=== PATIENT | male | born 1970 | race Caucasian/White ===

== ENCOUNTER 2019-07-03 00:43 | Day surgery (SDC) | payer OTHER, SELFPAY ==
[2019-06-29 14:41] VITALS: BMI 23.6
--- NOTE | 2019-07-03 08:38 | P.PNAN_ITS ---
Anes - Initial Pre Proc Eval Procedure: Operation Date: 07/03/19 10:30 Proposed Procedures p Screening Colonoscopy - Richar Albrecht MD <Jon Carter MD - Last Filed: 07/03/19 08:38> Date/Time: 07/03/19 08:38 <Jon Carter MD - Last Filed: 07/03/19 08:38> Surgeon: Richar Albrecht MD <Jon Carter MD - Last Filed: 07/03/19 08:38> Pre Op Diagnosis: Neoplasm screening, family hx colon ca <Jon Carter MD - Last Filed: 07/03/19 08:38> Patient Data Age: 48 Gender: M Height: 6 ft Weight: 79 kg <Jon Carter MD - Last Filed: 07/03/19 08:38> Allergies Allergy/AdvReac Type Severity Reaction Status Date / Time No Known Allergies Allergy Verified 06/29/19 14:40 <Jon Carter MD - Last Filed: 07/03/19 08:38> Home Medications Medication Instructions Recorded Confirmed Type albuterol sulfate 90 mcg INHALATION PRN 06/29/19 06/29/19 History <Jon Carter MD - Last Filed: 07/03/19 08:38> Patient hx anesthesia problems: none <Elan Stanley MD - Last Filed: 07/03/19 10:43> Family hx anesthesia problems: none <Elan Stanley MD - Last Filed: 07/03/19 10:43> FORMERLY [facility], [facility] Past Medical History Medical History: Medical History (Updated 07/03/19 @ 08:38 by Jon Carter MD) Anxiety Asthma <Jon Carter MD - Last Filed: 07/03/19 08:38> Social History Social History: Social History Gender identity (if verbalized by the patient): Male <Jon Carter MD - Last Filed: 07/03/19 08:38> Anes - Eval Final PreProcedure Day of Procedure 07/03/19 08:38 <Jon Carter MD - Last Filed: 07/03/19 08:38> Patient weight: normal <Elan Stanley MD - Last Filed: 07/03/19 10:43> Heart: regular rate and rhythm <Elan Stanley MD - Last Filed: 07/03/19 10:43> Lungs: clear to auscultation and normal air movement <Elan Stanley MD - Last Filed: 07/03/19 10:43> Airway: Mallampati scale class II <Elan Stanley MD - Last Filed: 07/03/19 10:43> Neurological: alert and oriented <Elan Stanley MD - Last Filed: 07/03/19 10:43> Last oral intake: >/= 8 hours <Elan Stanley MD - Last Filed: 07/03/19 10:43> ASA classification: II <Elan Stanley MD - Last Filed: 07/03/19 10:43> Emergent: no <Elan Stanley MD - Last Filed: 07/03/19 10:43> Anesthetic plan: proceed <Elan Stanley MD - Last Filed: 07/03/19 10:43> Anesthesia type and monitoring: general GIVS <Elan Stanley MD - Last Filed: 07/03/19 10:43> Informed Consent: The patient's anesthetic plan and its attendant risks and benefits were discussed with the patient/family/POA. Questions were solicited and answers provided to the satisfaction of the patient/family/POA. <Jon Carter MD - Last Filed: 07/03/19 08:38>
[2019-07-03] MEDS: LACTATED RINGERS 1,000 ML 150 ML IV CONT (10:36)
[2019-07-03 10:52] VITALS: BP 133/83; PULSE 65; RESP 20; TEMP 36.4; O2SAT 99; BMI 26.6
--- NOTE | 2019-07-03 11:06 | P.CONGI_ITS ---
Assessment and Plan Additional Plan This is a 48-year-old white male patient seen in evaluation at the request of Dr. Srinivasan Lemon. Patient states his current weight appetite bowel movements are normal. There is a report that his father may have had colon cancer. The family states it may been bladder cancer. Patient states that his own weight appetite bowel movements normal. denies any blood in his stools. He denies abdominal pain. Current medications include albuterol. Patient has no stated drug allergies. Past medical history significant for asthma. Physical exam reveals patient to be alert. Vital signs stable. HEENT exam unremarkable. Lungs are clear to auscultation and percussion. Heart is without murmur or extra sounds. Abdominal exam bowel sounds present soft nontender with no hepatosplenomegaly. Digital external rectal exam is normal. Impression 1. Neoplasia screening. This is advised because of his age. Also because of a questionable history of colon cancer in his father. Plan is for screening colonoscopy. GI Consult Note Consult date/time: 07/03/19 11:06 HPI: Mikey Singh is a 48 year old male [facility] Past Medical History Medical History (Updated 07/03/19 @ 08:38 by Jon Carter MD) Anxiety Asthma Social History Social History Gender identity (if verbalized by the patient): Male Meds Home Medications and Allergies Home Medications Medication Instructions Recorded Confirmed Type albuterol sulfate 90 mcg INHALATION PRN 06/29/19 07/03/19 History Allergies Allergy/AdvReac Type Severity Reaction Status Date / Time No Known Allergies Allergy Verified 07/03/19 10:51 Vital Signs Vital Signs - 24 hr 07/03/19 10:52 Temperature 36.4 C L Pulse Rate 65 Respiratory Rate 20 Blood Pressure 133/83 Pulse Oximetry 99
[2019-07-03 12:15] VITALS: BP 113/80; PULSE 68; RESP 16; O2SAT 95
[2019-07-03 12:25] VITALS: BP 124/81; PULSE 80; RESP 20; O2SAT 99
[2019-07-03 12:35] VITALS: BP 140/97; PULSE 78; RESP 17; O2SAT 98
== END 2019-07-03 12:48 | disposition home or self-care (01) ==
PROVIDERS: PCP Internal Medicine; Visit Provider Internal Medicine Gastroenterology
PROC: 0DJD8ZZ Inspection of Lower Intestinal Tract, Via Natural or Artificial Opening Endoscopic (ICD-10-PCS; CPT 45378; principal; 2019-07-03 10:30)
DX: Z12.11 Encounter for screening for malignant neoplasm of colon (principal); K63.5 Polyp of colon; K64.8 Other hemorrhoids; J45.909 Unspecified asthma, uncomplicated; F41.9 Anxiety disorder, unspecified
CPT/HCPCS: 45385; 88305; J2704; J7120

== ENCOUNTER 2021-09-27 09:48 | Outpatient (CLI) | payer OTHER, SELFPAY ==
--- NOTE | 2021-09-27 11:00 | NEURO_ITS ---
Impression: # Complains of numbness of hands. # Bilateral mild Carpal Tunnel Syndrome. # No ulnar neuropathy. # Needle/EMG exam not requested. Nerve Conduction Studies Anti Sensory Summary Table Stim Site NR Peak (ms) P-T Amp (?V) Site1 Site2 Delta-P (ms) Dist (cm) Rayshawn (m/s) Left Median Anti Sensory (2-3nd Digit) Wrist 3.4 24.1 Wrist 2-3nd Digit 3.4 14.0 41 Wrist 3.7 9.2 Wrist 2-3nd Digit 3.4 14.0 41 Right Median Anti Sensory (2-3nd Digit) Wrist 3.7 17.6 Wrist 2-3nd Digit 3.7 14.0 38 Wrist 3.9 20.0 Wrist 2-3nd Digit 3.7 14.0 38 Left Radial Anti Sensory (Base 1st Digit) Wrist 1.8 19.1 Wrist Base 1st Digit 1.8 0.0 Right Radial Anti Sensory (Base 1st Digit) Wrist 2.3 0.1 Wrist Base 1st Digit 2.3 0.0 Left Ulnar Anti Sensory (5th Digit) Wrist 1.9 21.3 Wrist 5th Digit 1.9 14.0 74 Right Ulnar Anti Sensory (5th Digit) Wrist 2.5 32.1 Wrist 5th Digit 2.5 14.0 56 Motor Summary Table Stim Site NR Onset (ms) O-P Amp (mV) Site1 Site2 Delta-0 (ms) Dist (cm) Rayshawn (m/s) Left Median Motor (Abd Poll Brev) Wrist 4.0 2.1 Elbow Wrist 5.5 31.0 56 Elbow 9.5 1.9 Right Median Motor (Abd Poll Brev) Wrist 4.5 2.2 Elbow Wrist 5.7 32.0 56 Elbow 10.2 4.2 Left Ulnar Motor (Abd Dig Minimi) Wrist 2.2 5.9 A Elbow Wrist 5.9 34.0 58 A Elbow 8.1 4.6 Right Ulnar Motor (Abd Dig Minimi) Wrist 3.0 5.0 A Elbow Wrist 5.7 33.0 58 A Elbow 8.7 3.7 F Wave Studies NR F-Lat (ms) L-R F-Lat (ms) Left Median (Mrkrs) (Abd Poll Brev) 31.48 0.65 Right Median (Mrkrs) (Abd Poll Brev) 32.14 0.65 Left Ulnar (Mrkrs) (Abd Dig Min) 29.53 0.35 Right Ulnar (Mrkrs) (Abd Dig Min) 29.88 0.35 MTDD
== END 2021-09-27 09:49 | disposition home or self-care (01) ==
PROVIDERS: PCP Internal Medicine; Visit Provider Internal Medicine
DX: R20.2 Paresthesia of skin (principal); G56.03 Carpal tunnel syndrome, bilateral upper limbs
CPT/HCPCS: 95911

== ENCOUNTER 2024-09-04 09:15 | Outpatient (CLI) | payer OTHER, SELFPAY ==
--- NOTE | ~2024-09-04 | US_ITS ---
EXAMINATION: US soft tissue UE LT DATE: 09/04/2024 09:32 INDICATION: Mass at the proximal left third digit TECHNIQUE: Multiple grayscale and Doppler ultrasound images of the region of concern at the ulnar horace e of the occiput left third digit were obtained. COMPARISON: None FINDINGS: The lesion of concern corresponds to a 5 x 5 x 4 mm anechoic simple appearing cystic lesion with no i nternal vascular flow on color Doppler. The lesion is located along the ulnar side of the diaphysis o f the third proximal phalanx. IMPRESSION: 5 mm simple appearing cystic lesion in the soft tissues along the ulnar side of the third proximal ph alanx most likely representing either a ganglion or epidermoid cyst. Reviewed, dictated and finalized at location B. IMPRESSION: 5 mm simple appearing cystic lesion in the soft tissues along the ulnar side of the third proximal phalanx most likely representing either a ganglion or epide rmoid cyst.
== END 2024-09-04 09:16 | disposition home or self-care (01) ==
LOC: MICIMG 09:16
PROVIDERS: PCP Family Medicine; Visit Provider Plastic Surgery
DX: M71.342 Other bursal cyst, left hand (principal)
CPT/HCPCS: 76882

== ENCOUNTER 2024-09-09 00:29 | Day surgery (SDC) | payer OTHER, SELFPAY ==
[2024-09-03 09:06] VITALS: BMI 27.1
--- OUTSIDE RECORDS SUMMARY | 2024-09-09 00:31 | XMS_ITS | Clinical Summary ---
Author Organization [place] [address] [address] Address [address] [place] [phone] Care Team Providers Care Roller Skates Assembler Name Role Phone Joanne Goodwin MD, Carlos Toth Primary Care Provide r Allergies No known active allergies Medications No known medications Active Problems Problem Noted Date Diagnosed Date Preventative health care 07/02/2024 Assessment & Plan (07/02/2024 9:48 AM MODELING AND SIMULATION ANALYST): Reviewed labs, screenings and vaccines Degeneration of intervertebral disc of cervical region 12/29/2015 Resolved Problems Problem Noted Date Diagnosed Date Resolved Date Cervicalgia 12/19/2015 07/02/2024 Encounters Date Type Department Care Team Description 08/10/2024 Letter (Out) [facility] [address] [place] [phone] 08/10/2024 Letter (Out) [facility] [address] [place] [phone] 08/10/2024 Patient Message [facility] [address] [place] [phone] Carlos Rubio Jr., MD Can you please fax a referral to Dr. Asuncion Oakley with [facility], for the knot on left hand / fax #[phone] Thank you. 07/13/2024 Telephone [facility] [address] [place] [phone] Carlos Rubio Jr., MD 07/02/2024 10:25 AM MODELING AND SIMULATION ANALYST Lab [facility] 1 Lab [address] [place] [address] Preventative health care 07/02/2024 10:00 AM MODELING AND SIMULATION ANALYST - 07/02/2024 11:59 PM MODELING AND SIMULATION ANALYST Hospital Encounter [facility] M[facility] 1 DIAG IMG [address] [place] [address] Pain of left middle finger Discharge Disposition: Discharge to home or self care 07/02/2024 9:15 AM MODELING AND SIMULATION ANALYST Office Visit [facility] [address] [facility] [address] [place] [phone] Carlos Rubio Jr., MD Preventative health care (Primary Dx); Pain of left middle finger from Last 3 Months Immunizations Immunization Administration Dates Next Due Influenza, Unspecified 07/02/2024(Deferr ed: Patient Refused),03/27/2024(Deferred: Patient Refused),03/27/2023(Deferred: Patient Refused) Medical History Medical History Date Comments Personal history of other di seases of the respiratory system History of asthma - (Added b y TW Conv) Allergies Family History Medical History Relation Name Comments Bladder Cancer Father Cancer Mother Colon cancer Mother Cancer Other Cancer - (Added by TW Conv) Relation Name Status Comments Father Mother Alive Other Social History Tobacco Use Types Packs/Day Years Used Date Smoking Tobacco: Never Smokeless Tobacco: Never Tobacco Cessation:Counseling Given: Not Answered PHQ-2 Answer Date Recorded PHQ-2 Total Score (If total score is 3 or more points, staff should administer the PHQ-9) 0 07/02/2024 Sex and Gender Information Value Date Recorded Sex Assigned at Not on file Legal Sex Male 8:41 AM MODELING AND SIMULATION ANALYST Gender Identity Male 05/04/2024 10:27 AM MODELING AND SIMULATION ANALYST Sexual Orientation Not on file Obstetrics History Last Filed Vital Signs Vital Sign Reading Time Taken Comments Blood Pressure 124/86 07/02/2024 9:11 AM MODELING AND SIMULATION ANALYST Pulse 81 07/02/2024 9:11 AM MODELING AND SIMULATION ANALYST Temperature 36.3 C (97.4 F) 07/02/2024 9:11 AM MODELING AND SIMULATION ANALYST Respiratory Rate 18 07/02/2024 9:11 AM MODELING AND SIMULATION ANALYST Oxygen Saturation 97% 07/02/2024 9:11 AM MODELING AND SIMULATION ANALYST Inhaled Oxygen Concentration - - Weight 96.2 kg (212 lb) 07/02/2024 9:11 AM MODELING AND SIMULATION ANALYST Height 182.9 cm (6') 07/02/2024 9:11 AM MODELING AND SIMULATION ANALYST Body Mass Index 28.75 07/02/2024 9:11 AM MODELING AND SIMULATION ANALYST Plan of Treatment Health Maintenance Due Date Last Done Comments Hepatitis C Screening 1970 DTaP/Tdap/Td Vaccine (1 - Tdap) 11/02/1982 Hepatitis B Screening 11/02/1989 Zoster Vaccine (1 of 2) 11/02/2021 Covid-19 Vaccine (3 - season) 2024 01/18/2021, 12/21/2020 Influenza Vaccine (Season Ended) 2025 Depression Screening 07/02/2025 07/02/2024 Regular Well Visit/Exam 18-64 07/02/2025 07/02/2024 Prostate Cancer Screening-PSA 07/02/2026 07/02/2024 Colon Cancer Screening-Colonoscopy 07/23/2029 07/23/2024, 07/03/2019, 07/03/2019, Additional history exists Pneumococcal vaccine <65 Aged Out No longer eligible based on patient's age to complete this topic Procedures Procedure Name Priority Date/Time Associated Diagnosis Comments EGFR Routine 07/02/2024 10:48 AM MODELING AND SIMULATION ANALYST Preventative health care DIFFERENTIAL AUTO Routine 07/02/2024 10: 48 AM MODELING AND SIMULATION ANALYST Preventative health care CBC WITH AUTO DIFFERENTIAL Routine 07/02/2024 10:48 AM MODELING AND SIMULATION ANALYST Preventative health care COMPREHENSIVE METABOLIC PANEL Routine 07/02/2024 10:48 AM MODELING AND SIMULATION ANALYST Preventative health care LIPID PANEL Routine 07/02/2024 10:48 AM MODELING AND SIMULATION ANALYST Preventative health care PSA SCREEN Routine 07/02/2024 10:48 AM MODELING AND SIMULATION ANALYST Preventative health care XR FINGER 3RD MIDDLE LEFT Schedule Routine, Read Routine (OP Routine) 07/02/2024 10:12 AM MODELING AND SIMULATION ANALYST Pain of left middle finger HM COLONOSCOPY Routine 07/03/2019 from Last 3 Months or Most Recently Relevant to Health Maintenance Results * eGFR (07/02/2024 10:48 AM MODELING AND SIMULATION ANALYST) Pathologist [facility] eGFR >90 >=60 mL/min/1. 73 m2 Comment: Interpretive Data Reference Interval Normal >/= 90 mL/min/1.73m2 Mildly decreased* 60 - 89 mL/min/1.73m2 Mildly to moderately decreased 45 - 59 mL/min/1.73m2 Moderately to severely decreased 30 - 44 mL/min/1.73m2 Severely decreased 15 - 29 mL/min/1.73m2 Kidney Failure < 15 mL/min/1.73m2 *Relative to young adult level Estimated glomerular filtration rate is determined by the 2020 CKD-EPI equation recommended by the National Kidney Foundation (A Unifying Approach to GFR Estimation: Recommendations of the NKF-ASK Task Force on Reassessing the Inclusion of Race in Diagnosing Kidney Disease, JASN 2020). The CKD-EPI equation should not be used for patients with unstable renal function and has not been validated in children and those over 70. Current interpretive data was last reviewed 2021. Testing performed by: [address] [address] Blood 07/02/2024 10:4 8 AM MODELING AND SIMULATION ANALYST 07/02/2024 1:28 PM MODELING AND SIMULATION ANALYST us Carlos Rubio Jr., MD LAB BLOOD ORDERABLES Final Result Performing Organization Address City/State/[facility] Co de Phone Number [facility] [address] [facility] Department [place] [address] * (ABNORMAL) Differential, auto (07/02/2024 10:48 AM MODELING AND SIMULATION ANALYST) Pathologist [facility] Neutrophil abs 6.0 1.5 - 6.5 K/cumm Comment:Testing performed by : [address] [address] Imm gran abs 0.1 0.0 - 0.1 K/cumm YESI DE ANDA Comment:Testing performed by : [address] [address] Lymphocyte abs 3.2 0.8 - 3.3 K/cumm CERNER Comment:Testing performed by : [address] [address] Monocyte abs 1.1(H) 0.2 - 0.8 K/cumm CERNER Comment:Testing performed by : [address] [address] Eosinophil abs 0.4 0.0 - 0.5 K/cumm [facility] Comment:Testing performed by : [address] [address] Basophil abs 0.2(H) 0.0 - 0.1 K/cumm [facility] Comment:Testing performed by : [address] [address] Neutrophil pct 55.3 % [facility] Comment: Interpretive Data Percent cell count reference ranges are not reported, since discordance with absolute values may lead to misinterpretation of CBC data. Current Interpretive Data was last revised on 2017. Testing performed by: [address] [address] Imm gran pct 0.8 % [facility] Comment: Interpretive Data Percent cell count reference ranges are not reported, since discordance with absolute values may lead to misinterpretation of CBC data. Current Interpretive Data was last revised on 2017. Testing performed by: [address] [address] Lymphocyte pct 29.0 % [facility] Comment: Interpretive Data Percent cell count reference ranges are not reported, since discordance with absolute values may lead to misinterpretation of CBC data. Current Interpretive Data was last revised on 2017. Testing performed by: [address] [address] Monocyte pct 9.7 % CERNER Comment: Interpretive Data Percent cell count reference ranges are not reported, since discordance with absolute values may lead to misinterpretation of CBC data. Current Interpretive Data was last revised on 2017. Testing performed by: [address] [address] Eosinophil pct 3.2 % [facility] Comment: Interpretive Data Percent cell count reference ranges are not reported, since discordance with absolute values may lead to misinterpretation of CBC data. Current Interpretive Data was last revised on 2017. Testing performed by: [address] [address] Basophil pct 2.0 % [facility] Comment: Interpretive Data Percent cell count reference ranges are not reported, since discordance with absolute values may lead to misinterpretation of CBC data. Current Interpretive Data was last revised on 2017. Testing performed by: [address] [address] Blood 07/02/2024 10:4 8 AM MODELING AND SIMULATION ANALYST 07/02/2024 1:26 PM MODELING AND SIMULATION ANALYST Carlos Rubio Jr., MD LAB BLOOD ORDERABLES Final Result Performing Organization Address [facility] de Phone Number [address] Department [place] [employer] [place] [address] * PSA screen (07/02/2024 10:48 AM MODELING AND SIMULATION ANALYST) PSA-Total 0.65 <=3.90 ng/mL Comment: Interpretive Data AGE SEX REFERENCE INTERVAL 0 minutes-150 years Female None 0 minutes-49 years Male None 50-59 years Male 0-3.90 60-69 years Male 0-5.40 70-79 years Male 0-6.20 80-150 years Male 0-6.20 The Sheila PSA Total assay procedure was used. Results from different manufacturers or methods may not be comparable. Serial testing should be performed using the same method. Current interpretive data last revised 21. Testing performed by: [address] [address] Blood 07/02/2024 10:4 8 AM MODELING AND SIMULATION ANALYST 07/02/2024 1:28 PM MODELING AND SIMULATION ANALYST Carlos Rubio Jr., MD LAB BLOOD ORDERABLES Final Result Performing Organization Address [facility] de Phone Number CERNER MH [address] Department [place] [address] * (ABNORMAL) CBC with auto differential (07/02/2024 10:48 AM MODELING AND SIMULATION ANALYST) [facility] WBC 10.9(H) 3.8 - 9.9 K/cumm Comment:Testing performed by : [address] [address] Hgb 16.0 13.0 - 17.5 g/dL YESI Comment:Testing performed by : [address] [address] Hct 47.6 38.9 - 50.3 % YESI Comment:Testing performed by : [address] [address] Plt 228 150 - 400 K/cumm YESI Comment:Testing performed by : [address] [address] MPV 10.1 9.1 - 12.3 fL YESI Comment:Testing performed by : [address] [address] RBC 5.30 4.30 - 5.80 M/cumm YESI Comment:Testing performed by : [address] [address] MCV 89.8 81.3 - 96.4 fL YESI Comment:Testing performed by : [address] [address] MCH 30.2 27.1 - 33.3 pg YESI Comment:Testing performed by : [address] [address] MCHC 33.6 32.3 - 35.7 g/dL YESI Comment:Testing performed by : [address] [address] RDW CV 12.0 11.1 - 14.9 % YESI Comment:Testing performed by : [address] [address] RDW SD 39.2 35.7 - 48.1 fL YESI Comment:Testing performed by : [address], [address] NRBC abs 0.00 0.00 - 0.01 K/cumm YESI Comment:Testing performed by : [facility], [address] [place] [address]., [address] Blood 07/02/2024 10:4 8 AM MODELING AND SIMULATION ANALYST 07/02/2024 1:26 PM MODELING AND SIMULATION ANALYST Carlos Rubio Jr., MD LAB BLOOD ORDERABLES Final Result YESI [address] [facility] Department [place] [address] * (ABNORMAL) Lipid panel (07/02/2024 10:48 AM MODELING AND SIMULATION ANALYST) Cholesterol 246(H) 30 - 199 mg/dL Comment: Interpretive Data Ages < or = 19 years Acceptable: <170 mg/dL Borderline high: 170-199 mg/dL High: >or= 200 mg/dL Ages > or = 20 years Desirable: <200 mg/dL Borderline high: 200-239 mg/dL High: >or= 240 mg/dL Literature References: 1. Expert Panel on Integrated Guidelines for Cardiovascular Health and Risk Reduction in Children and Adolescents. Pediatrics 2011;128:S213 2. NCEP Expert Panel. Circulation 2004;110:227 Current Interpretive Data was last revised on 2018. Testing performed by: [facility], [address] [place] [address]., [address] Triglycerides 157(H) <=149 mg/dL YESI Comment: Interpretive Data Ages < or = 9 years Acceptable: <75 mg/dL Borderline high: 75-99 mg/dL High: >or= 100 mg/dL Ages 10 to 20 years Acceptable: <90 mg/dL Borderline high: 90-129 mg/dL High: >or= 130 mg/dL Ages > or = 20 years Desirable: <150 mg/dL Borderline high: 150-199 mg/dL High: 200-499 mg/dL Very high: >or= 499 mg/dL Literature References: 1. Expert Panel on Integrated Guidelines for Cardiovascular Health and Risk Reduction in Children and Adolescents. Pediatrics 2011;128:S213 2. NCEP Expert Panel. Circulation 2004;110:227 Current Interpretive Data was last revised on 2018. Testing performed by: [facility], [address] [place] [address]., [address] HDL 43 >=40 mg/dL YESI Comment: Interpretive Data Ages < or = 19 years Acceptable: >45 mg/dL Borderline low: 40-45 mg/dL Low: <40 mg/dL Ages > or = 20 years Desirable: >or= 60 mg/dL Low: <40 mg/dL Literature References: 1. Expert Panel on Integrated Guidelines for Cardiovascular Health and Risk Reduction in Children and Adolescents. Pediatrics 2011;128:S213 2. NCEP Expert Panel. Circulation 2004;110:227 Current Interpretive Data was last revised on 2018. Testing performed by: [address] [address] LDL, calculated 174(H) <=129 mg/dL YESI Comment: Interpretive Data Ages < or = 19 years Acceptable: <110 mg/dL Borderline high: 110-129 mg/dL High: >or= 130 mg/dL Ages > or = 20 years Optimal: <100 mg/dL Near optimal: 100-129 mg/dL Borderline high: 130-159 mg/dL High: >160 mg/dL Calculated using the Kana LDL-C estimating equation. This equation was implemented on 2024. Prior to this date LDL-C was estimated using the Friedewald equation. Literature References: 1. Expert Panel on Integrated Guidelines for Cardiovascular Health and Risk Reduction in Children and Adolescents. Pediatrics 2011;128:S213 2. NCEP Expert Panel. Circulation 2004;110:227 3. Kana Au al. KEV Cardiol. 2020 September 24;5(5):540-548. doi: 10.1001/jamacardio.2020.0013 Current Interpretive Data was last revised on 2024. Testing performed by: [address] [address] Non-HDL Cholesterol 203 mg/dL YESI Comment: Interpretive Data Ages < or = 19 years Acceptable: <120 mg/dL Borderline high: 120-144 mg/dL High: >145 mg/dL Ages > or = 20 years When triglycerides are >200 mg/dL, Non-HDL cholesterol is a secondary target of therapy with treatment goals that are 30 mg/dL greater than the LDL cholesterol target. Literature References: 1. Expert Panel on Integrated Guidelines for Cardiovascular Health and Risk Reduction in Children and Adolescents. Pediatrics 2011;128:S213 2. NCEP Expert Panel. Circulation 2004;110:227 Current Interpretive Data was last revised on 2018. Testing performed by: [address] [address] Chol/HDL ratio 6 CERANTELMO Comment:Testing performed by : [address] [address] Blood 07/02/2024 10:4 8 AM MODELING AND SIMULATION ANALYST 07/02/2024 1:28 PM MODELING AND SIMULATION ANALYST us Carlos Rubio Jr., MD LAB BLOOD ORDERABLES Final Result [place] [address] [facility] Department [place] [address] * Comprehensive metabolic panel (07/02/2024 10:48 AM MODELING AND SIMULATION ANALYST) Sodium 141 135 - 145 mmol/L Comment:Testing performed by : [address] [address] Potassium, pl 4.5 3.3 - 4.9 mmol/L YESI Comment:Testing performed by : [address] [address] Chloride 104 97 - 110 mmol/L YESI Comment:Testing performed by : [address] [address] CO2 24 22 - 32 mmol/L YESI Comment:Testing performed by : [address] [address] Anion gap 13 2 - 15 mmol/L YESI Comment:Testing performed by : [address] [address] BUN 9 6 - 25 mg/dL YESI Comment:Testing performed by : [address] [address] Creatinine 1.00 0.80 - 1.30 mg/dL YESI Comment:Testing performed by : [address] [address] Glucose 101 70 - 199 mg/dL YESI Comment: Interpretive Data Fasting glucose >/= 126 mg/dl is diagnostic for diabetes. Fasting is defined as no caloric intake for at least 8 hours. Fasting glucose between 100 mg/dl to 125 mg/dl is diagnostic of prediabetes. In a patient with classic symptoms of hyperglycemia or hyperglycemic crisis, a random glucose >/= 200 mg/dl is diagnostic for diabetes. In the absence of unequivocal hyperglycemia, results should be confirmed by repeat testing. The classification and Diagnosis of Diabetes Diabetes Care 2021; 46: S19-S40. Current interpretive data was last revised 2022. Testing performed by: [address] [address] Calcium 9.7 8.5 - 10.3 mg/dL YESI Comment:Testing performed by : [address] [address] Bilirubin, total 0.4 0.1 - 1.2 mg/dL YESI Comment:Testing performed by : [address] [address] Protein, pl 7.9 6.5 - 8.5 g/dL YESI Comment:Testing performed by : [address] [address] Albumin 4.6 3.5 - 5.0 g/dL YESI Comment:Testing performed by : [address] [address] Alk phos 103 40 - 130 Units/L YESI Comment:Testing performed by : [address] [address] ALT 44 7 - 55 Units/L YESI Comment:Testing performed by : [address] [address] AST 28 10 - 50 Units/L YESI Comment:Testing performed by : [address] [address] Blood 07/02/2024 10:4 8 AM MODELING AND SIMULATION ANALYST 07/02/2024 1:28 PM MODELING AND SIMULATION ANALYST us Carlos Rubio Jr., MD LAB BLOOD ORDERABLES Final Result YESI [address] [facility] Department [place] [address] * XR Finger 3rd Middle Left (07/02/2024 10:12 AM MODELING AND SIMULATION ANALYST) Anatomical Region Laterality Modality Upper Extremities, Hand, Fingers Left Computed Radiography 07/03/2024 6:46 AM MODELING AND SIMULATION ANALYST Narrative 07/03/2024 6:47 AM MODELING AND SIMULATION ANALYST EXAM DESCRIPTION: XR FINGER 3RD MIDDLE LEFT REASON FOR STUDY: finger pain Knot on middle finger for 3 years, no pain FINDINGS: Three views of the left long finger are submitted for interpretation. No prior examination is available for comparison. The alignment of the left long finger is anatomic. The joint spaces are normal. No fracture seen. No definite soft tissue mass. IMPRESSION: 1. No radiographically evident soft tissue mass of the left long finger. The soft tissue mass can be further evaluated with ultrasound or MRI if clinically indicated. THIS IS AN ELECTRONICALLY VERIFIED FINAL REPORT 07/03/2024 6:47 AM - Electronically signed by Jevon Abdi M.D. TH: TH Report ID: [id number] Reading Location: [place] [address] Procedure Note Jevon Abdi MD - 07/03/2024 EXAM DESCRIPTION: XR FINGER 3RD MIDDLE LEFT REASON FOR STUDY: finger pain Knot on middle finger for 3 years, no pain FINDINGS: Three views of the left long finger are submitted for interpretation. No prior examination is available for comparison. The alignment of the left long finger is anatomic. The joint spaces are normal. No fracture seen. No definite soft tissue mass. IMPRESSION: 1. No radiographically evident soft tissue mass of the left long finger. The soft tissue mass can be further evaluated with ultrasound or MRI if clinically indicated. THIS IS AN ELECTRONICALLY VERIFIED FINAL REPORT 07/03/2024 6:47 AM - Electronically signed by Jevon SylvesterD. TH: TH Report ID: [id number] Reading Location: [id number] Carlos Rubio Jr., MD IMG XR PROCEDURES Fin al Result * COLONOSCOPY (07/03/2019) Scribed Colonoscopy Abnormal Historical Provider HEALTH MAINTENANCE Final Result from Last 3 Months or Most Recently Relevant to Health Maintenance Insurance Care Teams Roller Skates Assembler Relationship Specialty Start Date End Date Carlos Rubio Jr., MD [address] [place] [id number] PCP - General Internal Medicine 07/02/24
--- OUTSIDE RECORDS SUMMARY | 2024-09-09 00:31 | XMS_ITS | Clinical Summary ---
Author Organization [facility] Address [address] [place] [id number] Care Team Providers Care Senior Sales Director Name Role Phone Janae Fontaine MD Primary Care Provider [phone] Social History Tobacco Use Types Packs/Day Years Used Date Smoking Tobacco: Never Assessed Sex and Gender Information Value Date Recorded Sex Assigned at Male 09/07/2024 9:25 AM CDT Legal Sex Male 9:22 AM CDT Gender Identity Not on file Sexual Orientation Not on file Plan of Treatment Upcoming Encounters Date Type Department Care Team (Late st Contact Info) Description 09/14/2024 7:00 AM CDT Office Visit [facility] Family & Internal Medicine [address] [phone] [place] [phone] [address] Health Maintenance Due Date Last Done Comments Colorectal Cancer Screening Colonoscopy (10 Years) 1970 Annual Physical 11/02/1974 Hepatitis C 11/02/1989 DTaP, Tdap and Td Vaccines ( 1 - Tdap) 11/02/1990 Hepatitis B Vaccines (1 of 3 - 19+ 3-dose series) 11/02/1990 Pneumococcal Vaccine: 50+ Ye ars (1 of 1 - PCV) 11/02/2021 Zoster Vaccines (1 of 2) 11/02/2021 COVID-19 Vaccine (2023-2 5 season) 2024 Meningococcal B Vaccine Aged Out No l onger eligible based on patient's age to complete this topic Meningococcal Vaccine Aged Out No tomas jenna eligible based on patient's age to complete this topic RSV Immunizations Under 20 Months Aged Out No longer eligible based on patient's age to complete this topic Insurance [facility] Care Teams Senior Sales Director Relationship Specialty [place] [phone] [address] PCP - General INTERNAL MEDICINE 09/08/24
--- OUTSIDE RECORDS SUMMARY | 2024-09-09 00:31 | XMS_ITS | Referral Summary ---
Author Organization [facility] [address] [address] Address [address] [place] [phone] Care Team Providers Care Route Specialist Name Role Phone Joanne Goodwin MD, Carlos Toth Primary Care Provide r Encounters Date Type Department Care Team Description 08/10/2024 Letter (Out) [facility] [address] [place] [phone] 08/10/2024 Letter (Out) [facility] [address] [place] [phone] 08/10/2024 Patient Message [facility] [address] [place] [phone] Carlos Rubio Jr., MD Can you please fax a referral to Dr. Asuncion Oakley with [facility], for the knot on left hand / fax #[phone] Thank you. 07/13/2024 Telephone [facility] [address] [place] [phone] Carlos Rubio Jr., MD 07/02/2024 10:25 AM COMPANY TRUCK DRIVER Lab [facility] Office Building [address] [place] [id number] Preventative health care 07/02/2024 10:00 AM COMPANY TRUCK DRIVER - 07/02/2024 11:59 PM COMPANY TRUCK DRIVER Hospital Encounter [facility] MOB 1 DIAG IMG [address] [place] [phone] Pain of left middle finger Discharge Disposition: Discharge to home or self care 07/02/2024 9:15 AM COMPANY TRUCK DRIVER Office Visit [facility] [address] [place] [phone] Carlos Rubio Jr., MD Preventative health care (Primary Dx); Pain of left middle finger from Last 3 Months Allergies No known active allergies Medications No known medications Active Problems Problem Noted Date Diagnosed Date Preventative health care 07/02/2024 Assessment & Plan (07/02/2024 9:48 AM COMPANY TRUCK DRIVER): Reviewed labs, screenings and vaccines Degeneration of intervertebral disc of cervical region 12/29/2015 Resolved Problems Problem Noted Date Diagnosed Date Resolved Date Cervicalgia 12/19/2015 07/02/2024 Immunizations Immunization Administration Dates Next Due Influenza, Unspecified 07/02/2024(Deferr ed: Patient Refused),03/27/2024(Deferred: Patient Refused),03/27/2023(Deferred: Patient Refused) Social History Tobacco Use Types Packs/Day Years Used Date Smoking Tobacco: Never Smokeless Tobacco: Never Tobacco Cessation:Counseling Given: Not Answered PHQ-2 Answer Date Recorded PHQ-2 Total Score (If total score is 3 or more points, staff should administer the PHQ-9) 0 07/02/2024 Sex and Gender Information Value Date Recorded Sex Assigned at Not on file Legal Sex Male 8:41 AM COMPANY TRUCK DRIVER Gender Identity Male 05/04/2024 10:27 AM COMPANY TRUCK DRIVER Sexual Orientation Not on file Last Filed Vital Signs Vital Sign Reading Time Taken Comments Blood Pressure 124/86 07/02/2024 9:11 AM COMPANY TRUCK DRIVER Pulse 81 07/02/2024 9:11 AM COMPANY TRUCK DRIVER Temperature 36.3 C (97.4 F) 07/02/2024 9:11 AM COMPANY TRUCK DRIVER Respiratory Rate 18 07/02/2024 9:11 AM COMPANY TRUCK DRIVER Oxygen Saturation 97% 07/02/2024 9:11 AM COMPANY TRUCK DRIVER Inhaled Oxygen Concentration - - Weight 96.2 kg (212 lb) 07/02/2024 9:11 AM COMPANY TRUCK DRIVER Height 182.9 cm (6') 07/02/2024 9:11 AM COMPANY TRUCK DRIVER Body Mass Index 28.75 07/02/2024 9:11 AM COMPANY TRUCK DRIVER Plan of Treatment Not on file Procedures Procedure Name Priority Date/Time Associated Diagnosis Comments EGFR Routine 07/02/2024 10:48 AM COMPANY TRUCK DRIVER Preventative health care DIFFERENTIAL AUTO Routine 07/02/2024 10: 48 AM COMPANY TRUCK DRIVER Preventative health care CBC WITH AUTO DIFFERENTIAL Routine 07/02/2024 10:48 AM COMPANY TRUCK DRIVER Preventative health care COMPREHENSIVE METABOLIC PANEL Routine 07/02/2024 10:48 AM COMPANY TRUCK DRIVER Preventative health care LIPID PANEL Routine 07/02/2024 10:48 AM COMPANY TRUCK DRIVER Preventative health care PSA SCREEN Routine 07/02/2024 10:48 AM COMPANY TRUCK DRIVER Preventative health care XR FINGER 3RD MIDDLE LEFT Schedule Routine, Read Routine (OP Routine) 07/02/2024 10:12 AM COMPANY TRUCK DRIVER Pain of left middle finger HM COLONOSCOPY Routine 07/03/2019 from Last 3 Months or Most Recently Relevant to Health Maintenance Results * eGFR (07/02/2024 10:48 AM COMPANY TRUCK DRIVER) eGFR >90 >=60 mL/min/1. 73 m2 Comment: [...] of Race in Diagnosing Kidney Disease, JASN 202). The CKD-EPI equation should not be used for patients with unstable renal function and has not been validated in children and those over 70. Current interpretive data was last reviewed 2021. Testing performed by: [address] [address] Blood 07/02/2024 10:4 8 AM COMPANY TRUCK DRIVER 07/02/2024 1:28 PM COMPANY TRUCK DRIVER Carlos Rubio Jr., MD LAB BLOOD ORDERABLES Final Result [facility] [address] [facility] Department [place] [address] * (ABNORMAL) Differential, auto (07/02/2024 10:48 AM COMPANY TRUCK DRIVER) Neutrophil abs 6.0 1.5 - 6.5 K/cumm Comment:Testing performed by : [address] [address] Imm gran abs 0.1 0.0 - 0.1 K/cumm YESI Comment:Testing performed by : [address] [address] Lymphocyte abs 3.2 0.8 - 3.3 K/cumm YESI Comment:Testing performed by : [address] [address] Monocyte abs 1.1(H) 0.2 - 0.8 K/cumm YESI Comment:Testing performed by : [address] [address] Eosinophil abs 0.4 0.0 - 0.5 K/cumm YESI Comment:Testing performed by : [address] [address] Basophil abs 0.2(H) 0.0 - 0.1 K/cumm YESI Comment:Testing performed by : [address] [address] Neutrophil pct 55.3 % YESI Comment: Interpretive Data Percent cell count reference ranges are not reported, since discordance with absolute values may lead to misinterpretation of CBC data. Current Interpretive Data was last revised on 2017. Testing performed by: [address] [address] Imm gran pct 0.8 % [facility] Comment: Interpretive Data Percent cell count reference ranges are not reported, since discordance with absolute values may lead to misinterpretation of CBC data. Current Interpretive Data was last revised on 2017. Testing performed by: [address] [address] Lymphocyte pct 29.0 % [facility] Comment: Interpretive Data Percent cell count reference ranges are not reported, since discordance with absolute values may lead to misinterpretation of CBC data. Current Interpretive Data was last revised on 2017. Testing performed by: [address] [address] Monocyte pct 9.7 % [facility] Comment: Interpretive Data Percent cell count reference ranges are not reported, since discordance with absolute values may lead to misinterpretation of CBC data. Current Interpretive Data was last revised on 2017. Testing performed by: [address] [address] Eosinophil pct 3.2 % [facility] Comment: Interpretive Data Percent cell count reference ranges are not reported, since discordance with absolute values may lead to misinterpretation of CBC data. Current Interpretive Data was last revised on 2017. Testing performed by: [address] [address] Basophil pct 2.0 % [facility] Comment: Interpretive Data Percent cell count reference ranges are not reported, since discordance with absolute values may lead to misinterpretation of CBC data. Current Interpretive Data was last revised on 2017. Testing performed by: [address] [address] Blood 07/02/2024 10:4 8 AM COMPANY TRUCK DRIVER 07/02/2024 1:26 PM COMPANY TRUCK DRIVER us Carlos Rubio Jr., MD LAB BLOOD ORDERABLES Final Result [facility] [address] [facility] Department [place] [address] * PSA screen (07/02/2024 10:48 AM COMPANY TRUCK DRIVER) PSA-Total 0.65 <=3.90 ng/mL Comment: Interpretive Data [...] data last revised 21. Testing performed by: [address] [address] Blood 07/02/2024 10:4 8 AM COMPANY TRUCK DRIVER 07/02/2024 1:28 PM COMPANY TRUCK DRIVER Carlos Rubio Jr., MD LAB BLOOD ORDERABLES Final Result Performing Organization Address City/State/RUST Co de Phone Number [facility] [facility] Department [place] [address] * (ABNORMAL) CBC with auto differential (07/02/2024 10:48 AM COMPANY TRUCK DRIVER) Pathologist [facility] WBC 10.9(H) 3.8 - 9.9 K/cumm Comment:Testing performed by : [address] [address] Hgb 16.0 13.0 - 17.5 g/dL [facility] Comment:Testing performed by : [address] [address] Hct 47.6 38.9 - 50.3 % [facility] Comment:Testing performed by : [address] [address] Plt 228 150 - 400 K/cumm [facility] Comment:Testing performed by : [address] [address] MPV 10.1 9.1 - 12.3 fL [facility] Comment:Testing performed by : [address] [address] RBC 5.30 4.30 - 5.80 M/cumm [facility] Comment:Testing performed by : [facility], [address] [place] [address]., [address] MCV 89.8 81.3 - 96.4 fL [facility] Comment:Testing performed by : [address] [address] MCH 30.2 27.1 - 33.3 pg [facility] Comment:Testing performed by : [address], [address] MCHC 33.6 32.3 - 35.7 g/dL [facility] Comment:Testing performed by : [address], [address] RDW CV 12.0 11.1 - 14.9 % YESI Comment:Testing performed by : [address] [address] RDW SD 39.2 35.7 - 48.1 fL YESI Comment:Testing performed by : [address], [address] NRBC abs 0.00 0.00 - 0.01 K/cumm YESI Comment:Testing performed by : [address] [address] Blood 07/02/2024 10:4 8 AM COMPANY TRUCK DRIVER 07/02/2024 1:26 PM COMPANY TRUCK DRIVER Carlos Rubio Jr., MD LAB BLOOD ORDERABLES Final Result [facility] [address] [facility] Department [place] [address] * (ABNORMAL) Lipid panel (07/02/2024 10:48 AM COMPANY TRUCK DRIVER) Cholesterol 246(H) 30 - 199 mg/dL Comment: [...] last revised on 2018. Testing performed by: [address] [address] Triglycerides 157(H) <=149 mg/dL YESI Comment: Interpretive [...] last revised on 2018. Testing performed by: [address] [address] HDL 43 >=40 mg/dL YESI Comment: Interpretive [...] last revised on 2018. Testing performed by: [address] [address] LDL, calculated 174(H) <=129 mg/dL YESI Comment: [...] NCEP Expert Panel. Circulation 2004;110:227 3. Kana Kelsey et al. KEV Cardiol. 2020 September 24;5(5):540-548. doi: 10.1001/jamacardio.2020.0013 Current Interpretive Data was last revised on 2024. Testing performed by: [address] [address] Non-HDL Cholesterol 203 mg/dL [facility] Comment: Interpretive Data Ages < or = [...] last revised on 2018. Testing performed by: [address] [address] Chol/HDL ratio 6 YESI Comment:Testing performed by : [address] [address] Blood 07/02/2024 10:4 8 AM COMPANY TRUCK DRIVER 07/02/2024 1:28 PM COMPANY TRUCK DRIVER us Carlos Rubio Jr., MD LAB BLOOD ORDERABLES Final Result [facility] [address] [facility] Department [place] [address] * Comprehensive metabolic panel (07/02/2024 10:48 AM COMPANY TRUCK DRIVER) [facility] Signature Sodium 141 135 - 145 mmol/L Comment:Testing performed by : [address], [place]., [address] Potassium, pl 4.5 3.3 - 4.9 mmol/L YESI Comment:Testing performed by : [address], [place]., [address] Chloride 104 97 - 110 mmol/L YESI Comment:Testing performed by : [address], [place]., [address] CO2 24 22 - 32 mmol/L YESI Comment:Testing performed by : [address], [place]., [address] Anion gap 13 2 - 15 mmol/L YESI Comment:Testing performed by : [address], [place]., [address] BUN 9 6 - 25 mg/dL [facility] Comment:Testing performed by : [address], [place]., [address] Creatinine 1.00 0.80 - 1.30 mg/dL YESI Comment:Testing performed by : [address], [place]., [address] Glucose 101 70 - 199 mg/dL [facility] Comment: Interpretive Data Fasting glucose >/= 126 [...] was last revised 2022. Testing performed by: [address] [address] Calcium 9.7 8.5 - 10.3 mg/dL YESI Comment:Testing performed by : [address], [place]., [address] Bilirubin, total 0.4 0.1 - 1.2 mg/dL YESI Comment:Testing performed by : [address], [place]., [address] Protein, pl 7.9 6.5 - 8.5 g/dL YESI Comment:Testing performed by : [address] [address] Albumin 4.6 3.5 - 5.0 g/dL YESI Comment:Testing performed by : [address] [address] Alk phos 103 40 - 130 Units/L YESI Comment:Testing performed by : [address] [address] ALT 44 7 - 55 Units/L YESI Comment:Testing performed by : [address] [address] AST 28 10 - 50 Units/L YESI Comment:Testing performed by : [address] [address] Blood 07/02/2024 10:4 8 AM COMPANY TRUCK DRIVER 07/02/2024 1:28 PM COMPANY TRUCK DRIVER Carlos Rubio Jr., MD LAB BLOOD ORDERABLES Final Result [facility] Department [place] [address] * XR Finger 3rd Middle Left (07/02/2024 10:12 AM COMPANY TRUCK DRIVER) Anatomical Region Laterality Modality Upper Extremities, Hand, Fingers Left Computed Radiography 07/03/2024 6:46 AM COMPANY TRUCK DRIVER Narrative 07/03/2024 6:47 AM COMPANY TRUCK DRIVER EXAM DESCRIPTION: XR FINGER 3RD MIDDLE LEFT [...] Jevon Abdi M.D. TH: TH Report ID: [id number] Reading Location: [id number] Procedure Note Jevon Abdi MD - 07/03/2024 [...] Jevon Abdi M.D. TH: TH Report ID: [id number] Reading Location: [id number] Carlos Rubio Jr., MD IMG XR PROCEDURES Fin al Result * COLONOSCOPY (07/03/2019) Scribed Colonoscopy Abnormal Historical Provider HEALTH MAINTENANCE Final Result from Last 3 Months or Most Recently Relevant to Health Maintenance Insurance Care Teams Route Specialist Relationship Specialty Start Date End Date Carlos Rubio Jr., MD [address] [place] [id number] PCP - General Internal Medicine 07/02/24
[2024-09-09 13:26] VITALS: BP 137/91; PULSE 76; RESP 18; TEMP 36.9; O2SAT 98
[2024-09-09] MEDS: LACTATED RINGERS 1,000 ML 150 ML IV CONT (13:32)
--- NOTE | 2024-09-09 13:48 | P.PNAN_ITS ---
Anes - Initial Pre Proc Eval Procedure: Operation Date: 09/09/24 14:30 Proposed Procedures p Screening Colonoscopy - Frederick Alba MD Date/Time: 09/09/24 13:48 Surgeon: Frederick Alba MD Pre Op Diagnosis: screening Patient Data Age: 53 Gender: M Height: 1.83 m Weight: 91 kg Last Vital Signs Temp 36.9 C 09/09/24 13:26 Pulse 76 09/09/24 13:26 Resp 18 09/09/24 13:26 BP 137/91 H 09/09/24 13:26 Pulse Ox 98 09/09/24 13:26 O2 Del Method Room Air 09/09/24 13:26 Allergies Allergy/AdvReac Type Severity Reaction Status Date / Time No Known Allergies Allergy Verified 09/03/24 08:57 Home Medications ?Medication ?Instructions ?Recorded ?Confirmed ?Type albuterol sulfate 90 mcg/actuation 90 mcg inhalation PRN 06/29/19 09/03/24 History aerosol inhaler Patient hx anesthesia problems: none Family hx anesthesia problems: none Results Review: All pre-operative results and documents have been reviewed as part of the pre- operative evaluation. [facility] Past Medical History Medical History Carpal tunnel syndrome, right Carpal tunnel syndrome, left Anxiety Asthma Surgical History Surgical History H/O colonoscopy 07/03/19 Dr. Albrecht, repeat 5 years Social History Social History Smoking status: Never smoker Alcohol intake: never Substance use: never Substance use type: does not use Living arrangements: with family Occupation/Education: occupation Gender identity (if verbalized by the patient): Male Spiritual care concerns: No Anes - Eval Final PreProcedure Day of Procedure 09/09/24 13:48 Patient weight: normal Heart: regular rate and rhythm Lungs: clear to auscultation Airway: Mallampati scale class 1 Neurological: alert and oriented Last oral intake: >/= 8 hours ASA classification: II Emergent: no Anesthetic plan: proceed Anesthesia type and monitoring: general GIVS and standard monitoring Results Review: All pre-operative results and documents have been reviewed as part of the pre- operative evaluation. Informed Consent: The patient's anesthetic plan and its attendant risks and benefits were dis cussed with the patient/family/POA. Questions were solicited and answers provided to the satisfaction of the patient/family/POA.
--- NOTE | 2024-09-09 13:50 | PM.IMHP ---
H&P: HPI History of Present Illness Date/Time: 09/09/24 13:50 Chief Complaint: History of colon polyps Narrative: The patient has a history of colonic polyps, the last colonoscopy was in 2019, finding a sessile serrated lesion. Review of Systems Review of Systems: All systems reviewed & are unremarkable except as noted in HPI and below PMFSH Past Medical History Medical History Carpal tunnel syndrome, right Carpal tunnel syndrome, left Anxiety Asthma Surgical History Surgical History H/O colonoscopy 07/03/19 Dr. Albrecht, repeat 5 years Social History Social History Smoking status: Never smoker Alcohol intake: never Substance use: never Substance use type: does not use Living arrangements: with family Occupation/Education: occupation Gender identity (if verbalized by the patient): Male Spiritual care concerns: No Meds Home Medications and Allergies Home Medications ?Medication ?Instructions ?Recorded ?Confirmed ?Type albuterol sulfate 90 mcg/actuation 90 mcg inhalation PRN 06/29/19 09/03/24 History aerosol inhaler Allergies Allergy/AdvReac Type Severity Reaction Status Date / Time No Known Allergies Allergy Verified 09/03/24 08:57 Vital Signs Vital Signs - 24 hr 09/09/24 13:26 Temperature 98.5 F Pulse Rate 76 Respiratory Rate 18 Blood Pressure 137/91 H Pulse Oximetry 98 Oxygen Delivery Room Air Exam Const: General: cooperative and healthy appearing Resp: Effort & Inspection: normal respiratory effort and able to speak in complete sentences Auscultation: clear to auscultation bilaterally Cardio: Rate: regular rate Rhythm: regular rhythm GI: Inspection: normal to inspection GI Palp: No No hepatosplenomegaly present Auscultation: normal bowel sounds Rectal Exam: deferred Skin: General skin exam: normal color Psych: Appearance: grossly normal Mental Status: mental status grossly normal Assessment and Plan Assessment and plan (1) History of colonic polyps: Code(s): Z86.0100 - Personal history of colon polyps, unspecified Status: Acute Assessment and Plan: The patient is deemed a good candidate for the procedure. Consent signed. Will proceed.
[2024-09-09 14:19] VITALS: BP 143/96; PULSE 77; RESP 26; O2SAT 100
[2024-09-09 14:29] VITALS: BP 138/103; PULSE 66; RESP 18; O2SAT 99
[2024-09-09 14:39] VITALS: BP 156/109; PULSE 65; RESP 18; O2SAT 99
== END 2024-09-09 14:58 | disposition home or self-care (01) ==
PROVIDERS: PCP Hospitalist; Referring Provider Hospitalist; Visit Provider Internal Medicine Gastroenterology
PROC: 0DJD8ZZ Inspection of Lower Intestinal Tract, Via Natural or Artificial Opening Endoscopic (ICD-10-PCS; CPT 45378; principal; 2024-09-09 14:30)
DX: Z12.11 Encounter for screening for malignant neoplasm of colon (principal); D12.2 Benign neoplasm of ascending colon; J45.909 Unspecified asthma, uncomplicated; F41.9 Anxiety disorder, unspecified; G56.03 Carpal tunnel syndrome, bilateral upper limbs; Z79.51 Long term (current) use of inhaled steroids
CPT/HCPCS: 45385; 88305; J0461; J2003; J2704; J7120